=== PATIENT | male | born 1945 | race Caucasian/White ===

== ENCOUNTER 2018-04-20 10:26 | Day surgery (SDC) | payer MEDICARE ==
[~2018-04-20] VITALS: Ht 172.7 cm; Wt 78.8 kg
[~2018-04-20 10:26] MED LIST: AMLO5TAB6 PO; ASPI1TAB PO; CALC600T60 PO; GABA600T4 PO; GLIM2TAB PO; GLIM4TAB PO; LOSA50TA88 PO; MAGN250T9 PO; METF-723 PO; MULT1TAB10 PO; NORT10CA2 PO; NS 1,000 ML IV ONE; PANT40TA3 PO; PIOG1TAB36 PO; PROP60CA PO; SIMV20TA2 PO; TRAZO50TA PO; VITA500T PO
[2018-04-20] MEDS ORDERED: PROPOFOL 200 MG/20 ML VIAL As Ordered ONE (11:24)
[2018-04-20] MEDS ORDERED: LIDOCAINE 2% INJ 100 MG/5 ML SDV (FOR ANES.) As Ordered ONE (11:24)
[2018-04-20 12:00] VITALS: BP 135/71
--- NOTE | 2018-04-20 12:09 | ROOR ---
Patient Name: Kishor Urias Procedure Date: 04/20/2018 11:22 AM Date of : 1945 Age: 72 Room: [facility] Gender: Male Note Status: Finalized Procedure: Upper GI endoscopy Indications: Dysphagia Providers: Robert Lewis MD Referring MD: BERTHA BLISS MD Requesting Provider: Medicines: Monitored Anesthesia Care Complications: No immediate complications. Procedure: Pre-Anesthesia Assessment: - Prior to the procedure, a History and Physical was performed, and patient medications and allergies were reviewed. The patient is competent. The risks and benefits of the procedure and the sedation options and risks were discussed with the patient. All questions were answered and informed consent was obtained. Patient identification and proposed procedure were verified by the physician, the nurse and the anesthesiologist in the procedure room. Mental Status Examination: alert and oriented. Airway Examination: normal oropharyngeal airway and neck mobility. Respiratory Examination: clear to auscultation. CV Examination: normal. Prophylactic Antibiotics: The patient does not require prophylactic antibiotics. Prior Anticoagulants: The patient has taken no previous anticoagulant or antiplatelet agents. ASA Grade Assessment: II - A patient with mild systemic disease. After reviewing the risks and benefits, the patient was deemed in satisfactory condition to undergo the procedure. The anesthesia plan was to use monitored anesthesia care (MAC). Immediately prior to administration of medications, the patient was re-assessed for adequacy to receive sedatives. The heart rate, respiratory rate, oxygen saturations, blood pressure, adequacy of pulmonary ventilation, and response to care were monitored throughout the procedure. The physical status of the patient was re-assessed after the procedure. The Endoscope was introduced through the mouth, and advanced to the second part of duodenum. The upper GI endoscopy was accomplished without difficulty. The patient tolerated the procedure well. Findings: Mucosal changes including white plaques and longitudinal markings were found in the middle third of the esophagus and in the lower third of the esophagus. Biopsies were obtained from the proximal and distal esophagus with cold forceps for histology of suspected eosinophilic esophagitis. Verification of patient identification for the specimen was done by the physician and nurse using the patient's name, date and medical record number. Estimated blood loss was minimal. There is no endoscopic evidence of stenosis or signs of external compression in the entire esophagus. Patchy moderate inflammation characterized by erythema and granularity was found in the gastric antrum. Biopsies were taken with a cold forceps for Helicobacter pylori testing. The duodenal bulb and second portion of the duodenum were normal. Impression: - Esophageal mucosal changes suspicious for eosinophilic esophagitis. Biopsied. - Gastritis. Biopsied. - Normal duodenal bulb and second portion of the duodenum. Recommendation: - Patient has a contact number available for emergencies. The signs and symptoms of potential delayed complications were discussed with the patient. Return to normal activities tomorrow. Written discharge instructions were provided to the patient. - Resume previous diet. - Continue present medications. - Await pathology results. - Based on the biopsy results you will receive a phone call from GI clinic in 2-3 weeks to review the pathology results AND/OR your results will be faxed to your Primary care physician. - Return to primary care physician. Robert Lewis MD Robert Lewis MD 04/20/2018 12:07:10 PM This report has been signed electronically. Number of Addenda: 0 Note Initiated On: 04/20/2018 11:22 AM Estimated Blood Loss: Estimated blood loss was minimal.
== END 2018-04-20 12:12 | disposition home or self-care (01) ==
LOC: M OPP 10:26
PROVIDERS: ATTEND Internal Medicine Gastroenterology
DX: K22.8 Other specified diseases of esophagus (principal); K29.70 Gastritis, unspecified, without bleeding; R13.10 Dysphagia, unspecified; Z79.899 Other long term (current) drug therapy; Z88.0 Allergy status to penicillin; Z95.5 Presence of coronary angioplasty implant and graft

== ENCOUNTER → 2019-09-20 | Outpatient (REF) | payer MEDICARE ==
[~2019-09-20] MED LIST changes: +AMLO1TAB24 PO; -AMLO5TAB6 PO; -ASPI1TAB PO; +ASPI81TA26 PO; -GLIM2TAB PO; +GLIM2TAB4 PO; -GLIM4TAB PO; +GLIM4TAB5 PO; -NS 1,000 ML IV ONE; +PANT40TA29 PO; -PANT40TA3 PO; -SIMV20TA2 PO; +SIMV20TA22 PO; +TRAZ1TAB10 PO; -TRAZO50TA PO; +VITA-243 PO; -VITA500T PO
[2019-11-01 10:47] LABS: CREATININE, URINE 46.9 MG/DL; MALB URINE SIEMENS < 5.0 MG/L; MAU/CREAT RATIO 10.6 MCG/MG (0.0-30.0)
== END ==
LOC: M LAB REF 08:45
PROVIDERS: ATTEND Nurse Practitioner Family
DX: E11.22 Type 2 diabetes mellitus with diabetic chronic kidney disease (principal)

== ENCOUNTER → 2019-10-19 | Outpatient (CLI) | payer MEDICARE ==
[~2019-10-19] MED LIST changes: +METHACHOLINE KIT (J7674) INH ONE
--- NOTE | 2019-10-28 11:52 | PFTRPT ---
Height: 68.00 Inches Weight: 170.00 Lbs BSA: 1.91 Diagnosis: R06.02 DATE: 10/19/2019 ORDERED BY: Andrés Sadler M.D. QUALITY: Study of excellent technical quality. PROCEDURE: Under protocol, methacholine was administered. Even after a maximum dose of 25 mg or 188.875 CDUs, no provocation dose was ever achieved. IMPRESSION: Negative methacholine challenge study. MTDD
--- NOTE | 2019-10-28 11:52 | PFTRPT ---
Height: 68.00 Inches Weight: 170.00 Lbs BSA: 1.91 Diagnosis: R06.02 DATE OF STUDY: 10/19/2019 ORDERING PHYSICIAN: Andrés Sadler MD Pre and post bronchodilator therapy have excellent technical quality. Forced vital capacity is normal. FEV-1 adequate exchange noted. Flow volume loop was normal. Total capacity normal. Residual volume borderline for air trapping and diffusion capacity mildly reduced but is appropriate for alveolar volume. Hemoglobin mildly reduced at 11. Airway resistance and conductance are normal. IMPRESSION: Cannot rule out a degree of air trapping with a mild anemia. Please correlate clinically. MTDD
== END ==
LOC: M CARPUL 07:22
PROVIDERS: ATTEND Internal Medicine Pulmonary Disease
DX: R06.02 Shortness of breath (principal)
CPT/HCPCS: 88738; 94010; 94070; 94726; 94729; 95070; J7674

== ENCOUNTER → 2020-09-25 | Outpatient (REF) | payer MEDICARE ==
[~2020-09-25] MED LIST changes: -METHACHOLINE KIT (J7674) INH ONE
[2020-09-25 18:07] LABS: MALB URINE SIEMENS 6.4 MG/L; MAU/CREAT RATIO 5.9 MCG/MG (0.0-30.0)
== END ==
LOC: M LAB REF 17:01
PROVIDERS: ATTEND Nurse Practitioner Family
DX: E11.22 Type 2 diabetes mellitus with diabetic chronic kidney disease (principal)

== ENCOUNTER → 2021-09-25 | Outpatient (REF) | payer MEDICARE ==
[~2021-09-25] MED LIST changes: +LOSA50TA28 PO; -LOSA50TA88 PO
[2021-09-25 21:49] LABS: CREATININE, URINE 78.2 MG/DL; MAU/CREAT RATIO 16.6 MCG/MG (0.0-30.0)
== END ==
LOC: M LAB REF 16:54
PROVIDERS: ATTEND Nurse Practitioner Family
DX: E11.22 Type 2 diabetes mellitus with diabetic chronic kidney disease (principal)

== ENCOUNTER → 2022-07-29 | Outpatient (CLI) | payer MEDICARE ==
[2022-07-29 14:31] LABS: CREATININE, URINE 89.1 MG/DL
[2022-07-29 14:33] LABS: MALB URINE SIEMENS < 3.0 MG/L; MAU/CREAT RATIO 3.3 MCG/MG (0.0-30.0)
== END ==
LOC: M WUC 10:32
PROVIDERS: ATTEND Nurse Practitioner Family
DX: E11.22 Type 2 diabetes mellitus with diabetic chronic kidney disease (principal)